=== PATIENT | male | born 1970 ===

== ENCOUNTER 2021-08-31 19:08 | Emergency (ER) | payer BC ==
[2021-08-31] MEDS ORDERED: ceFAZolin 1 GM Vial IM ONE (23:35)
[2021-09-01] MEDS ORDERED: Bacitracin Oint 1 GM U/D Packet ONE (00:13)
[2021-09-01] MEDS ORDERED: Bacitracin Oint 1 GM U/D Packet TOP ONE (00:15)
== END 2021-09-01 00:40 | disposition home or self-care (01) ==
LOC: MW.ED 19:08
DX: S61.112A Laceration without foreign body of left thumb with damage to nail, initial encounter (principal); F17.210 Nicotine dependence, cigarettes, uncomplicated; W26.0XXA Contact with knife, initial encounter
CPT/HCPCS: 12001; 73140; 99282; J0690; 99283